=== PATIENT | female | born 1995 | race Caucasian/White ===

== ENCOUNTER → 2023-06-20 13:14 | Outpatient (CLI) | payer OTHER, SELFPAY ==
[2023-06-20 13:41] LABS: Add Manual Diff / Slide Review NO; Basophils Absolute Auto 0 /uL (0-100); Basophils Percent Auto 0.3 % (0-2); Eosinophils Absolute Auto 100 /uL (0-450); Eosinophils Percent Auto 1.5 % (2-4); Hematocrit 36.6 % (36-46); Hemoglobin 12.6 g/dL (12.0-16.0); Lymphocytes Absolute Auto 1800 /uL (1100-4500); Lymphocytes Percent Auto 20.3 % (25-40); Mean Corpuscular HGB Conc 34.5 % (30-36); Mean Corpuscular Hemoglobin 30.8 PG (26-34); Mean Corpuscular Volume 89.3 fL (80-100); Monocytes Absolute Auto 400 /uL (0-900); Monocytes Percent Auto 4.9 % (3-14); Neutrophils Absolute Auto 6500 /uL (1500-7000); Platelet Count 291 X10^3/uL (150-400); Red Cell Distribution Width 13.7 % (11.6-14.8); White Blood Cell Count 8.9 X10^3/uL (4.5-11.0)
[2023-06-20 15:21] LABS: Hepatitis B Surface Antigen NEGATIVE s/c (NEGATIVE); Rubella Antibody IgG 15.9 IU/mL (>15)
[2023-06-20 15:39] LABS: HIV 1 & 2 Ab/Ag 4th Gen Combo NEGATIVE (NEGATIVE); Hep C Virus Ab w/Reflex Quant NEGATIVE s/c (NEGATIVE)
[2023-06-21 10:02] LABS: RPR Screen Non Reactive (Non Reactive); Varicella IgG Antibody 477 index (Immune >165)
== END ==
PROVIDERS: PCP Nurse Practitioner Family; Referring Provider Obstetrics & Gynecology; Visit Provider Obstetrics & Gynecology
DX: Z34.80 Encounter for supervision of other normal pregnancy, unspecified trimester (principal)
CPT/HCPCS: 36415; 80055; 86787; 86803; 86850; 86900; 86901; 87086; 87389

== ENCOUNTER → 2023-07-18 07:24 | Outpatient (CLI) | payer OTHER, SELFPAY ==
--- NOTE | 2023-07-18 07:25 | DI.US.S_ITS ---
PROCEDURE: US OB LIMITED INDICATIONS: TWINS VERSUS UTERINE SEPTATION OUTSIDE/PRIOR DATING DATA: Last menstrual period (LMP): 04/09/2023. First dating scan (date and location): 06/10/2023. Estimated date of delivery (MALISSA) from first dating scan: 01/13/2024. The calculations are made using the working MALISSA of 01/13/2024. TECHNIQUE: Real-time scanning was performed of the fetus, with image documentation. Endovaginal scannin COMPARISON: None. FINDINGS: A single living intrauterine gestation is present. Presentation: Variable. Placenta: Placental position is fundal, without previa. Amniotic fluid index: Within normal limits heart rate: 149 beats per minute. Maternal cervical canal: 4.3 cm long. Normal lower limit is 2.5 cm. Clinically estimated gestational age: 14 week 3 day Estimated gestational age from initial scan: 15 week 1 day Additionally, there is an adjacent empty gestational sac with placenta and twin peak sign. No yolk sac or pole present. Gestational sac measures 2.3 x 1.8 x 2.3 cm IMPRESSION: Single live intrauterine consistent with 15 week 1 day gestation by current ultrasound. Additional empty gestational sac probably reflects the sequela of an original diamniotic dichorionic and demise of 1 twin Approved by: Juan Jose Mcgee M.D. on 07/18/2023 at 12:05
== END ==
PROVIDERS: PCP Nurse Practitioner Family; Referring Provider Obstetrics & Gynecology; Visit Provider Obstetrics & Gynecology
DX: Z34.82 Encounter for supervision of other normal pregnancy, second trimester (principal); Z3A.15 15 weeks gestation of pregnancy
CPT/HCPCS: 76815

== ENCOUNTER 2023-07-25 13:51 | Outpatient (CLI) | payer OTHER, SELFPAY ==
[2023-07-25] MEDS: LACTATED RINGERS 1,000 ML 1000 ML IV ×2 (14:05→15:14)
--- NOTE | 2023-07-25 14:27 | PC.NURSE ---
pt here fro fluids r/t dehydration of . Pt presents well, A&Ox4.
[2023-07-25 15:47] VITALS: BP 94/55; PULSE 88; RESP 16; TEMP 36.5
== END 2023-07-25 16:32 | disposition home or self-care (01) ==
LOC: LABOR 14:39 → OB 09-07 15:23
PROVIDERS: PCP Nurse Practitioner Family; Referring Provider Obstetrics & Gynecology; Visit Provider Obstetrics & Gynecology
DX: O26.892 Other specified pregnancy related conditions, second trimester (principal); W19.XXXA Unspecified fall, initial encounter
CPT/HCPCS: 96360; G0378; G0379

== ENCOUNTER → 2023-08-10 09:23 | Outpatient (CLI) | payer OTHER, SELFPAY ==
[2023-08-10 15:08] LABS: Urine N gonorrhoeae NOT DETECTED
[2023-08-10 15:09] LABS: Urine Chlamydia NOT DETECTED
== END ==
PROVIDERS: PCP Nurse Practitioner Family; Visit Provider Obstetrics & Gynecology
DX: Z34.82 Encounter for supervision of other normal pregnancy, second trimester (principal); Z3A.17 17 weeks gestation of pregnancy
CPT/HCPCS: 87491; 87591

== ENCOUNTER → 2023-09-01 12:27 | Outpatient (CLI) | payer OTHER, SELFPAY ==
[2023-09-06 22:19] LABS: AFP, Serum 63.4 ng/mL (.); Estriol, Free 1.83 ng/mL (.); Inhibin A, Dimeric 422.87 pg/mL (.); Inhibin A, MoM 2.25 (.); Maternal Ethnicity Caucasian (.); Maternal Weight 160 lbs (.); Number of Fetuses No (.); OSBR Risk 1 IN 10000 (.); Results Report (.); Test Results *Screen Positive* (.); hCG, MoM 3.13 (.); hCG, Serum 74180 mIU/mL (.)
== END ==
PROVIDERS: PCP Family Medicine; Referring Provider Obstetrics & Gynecology; Visit Provider Obstetrics & Gynecology
DX: Z34.82 Encounter for supervision of other normal pregnancy, second trimester (principal); Z3A.17 17 weeks gestation of pregnancy
CPT/HCPCS: 36415; 82105; 82677; 84702; 86336

== ENCOUNTER → 2023-09-08 08:38 | Outpatient (CLI) | payer OTHER, SELFPAY ==
--- NOTE | 2023-09-08 08:39 | DI.US.S_ITS ---
PROCEDURE: US OB >= 14 WEEKS FETUS INDICATIONS: ANATOMY OUTSIDE/PRIOR DATING DATA: Last menstrual period (LMP): 04/09/2023. LMP-based estimated date of delivery (MALISSA): 01/14/2024. First dating scan (date and location): 06/10/2023. Estimated date of delivery (MALISSA) from first dating scan: 01/13/2024. The calculations are made using the clinical MALISSA of 01/14/2024. TECHNIQUE: Real-time scanning was performed of the fetus, with image documentation and biometric measurements. Endovaginal scanning: Not performed COMPARISON: [facility], , OB >= 14 WEEKS FETUS, 08/10/2023, 8:56. [facility], , OB LIMITED, 07/18/2023, 7:46. FINDINGS: General: A single living intrauterine gestation is present. Presentation: Breech. Placenta: Placental position is posterior/right , without previa. Amniotic fluid index: 19.3 cm, normal range is 5-24 cm. Single deepest vertical pocket is 6.1 cm. heart rate: 152 beats per minute. Maternal cervical canal: 4.6 cm long. Normal lower limit is 2.5 cm. biometrics: Biparietal diameter: 5.5 centimeters, 22 weeks 6 days Head circumference: 19.8 centimeters, 22 weeks 0 days Abdominal circumference: 18.4 centimeters, 23 weeks 2 days Femur length: 3.6 centimeters, 21 weeks 3 days Clinically estimated gestational age: 21 weeks 5 days Composite gestational age from present scan: 22 weeks 3 days Estimated weight and percentile: 504 grams, 81st percentile Anatomic survey: Neuro: Ventricles are non-dilated at less than 10 mm. Cisterna magna is normal at 3-11 mm. Cerebellum is normal in size and morphology. Nuchal skin fold: Normal at less than 6 mm between 14-21 weeks gestational age. Face: Nose and lips, facial profile are normal. Spine: No evidence for spina bifida. Heart: 4-chambered heart is present, with normal ventricular outflow tracts. Diaphragm: Diaphragm is intact. Stomach: Left-sided stomach is present. Kidneys: No hydronephrosis. Normal is less than 5 mm in 2nd trimester, less than 7 mm in 3rd trimester. Cord: 3-vessel cord has orthotopic insertion. Bladder: Normal in size. Extremities: All 4 extremities identified. Possible right lower synechiae with cystic areas. IMPRESSION: 1. Single live intrauterine consistent with 22 weeks and 3 days. 2. anatomic survey is within normal limits. 3. Possible right lower intrauterine synechiae with small cystic areas of unclear clinical significance. Follow-up ultrasound can be obtained as clinically indicated. We strive to produce accurate, complete, and clear reports of imaging services. To assist us in improving patient care, this report was composed using standard report templates and voice recognition software. Therefore, it may contain abnormal punctuation, insertions and/or omissions. Occasional wrong-word or sound-alike substitutions may occur. Though we review the report and make efforts to correct it, we do recommend that the report be read carefully in proper context to recognize any text inaccuracies. Dictated by: Luigi Gimenez M.D. on 09/08/2023 at 11:41 Approved by: Luigi Gimenez M.D. on 09/08/2023 at 11:47
== END ==
LOC: US 08:39
PROVIDERS: PCP Family Medicine; Referring Provider Obstetrics & Gynecology; Visit Provider Obstetrics & Gynecology
DX: Z34.82 Encounter for supervision of other normal pregnancy, second trimester (principal); Z3A.22 22 weeks gestation of pregnancy
CPT/HCPCS: 76811

== ENCOUNTER 2023-10-15 18:51 | Outpatient (CLI) | payer OTHER, SELFPAY ==
--- NOTE | 2023-10-15 19:10 | DI.US.S_ITS ---
PROCEDURE: US OB LIMITED INDICATIONS: looking for placental abruption OUTSIDE/PRIOR DATING DATA: Last menstrual period (LMP): 04/09/23 LMP-based estimated date of delivery (MALISSA): 01/14/24. First dating scan (date and location): 06/10/23. Estimated date of delivery (MALISSA) from first dating scan: 01/13/24. TECHNIQUE: Real-time scanning was performed of the fetus, with image documentation. Endovaginal scanning: Not needed [facility]23, 7:46. FINDINGS: A single living intrauterine gestation is present. Presentation: Vertex. Placenta: Placental position is right posterior, without previa. There is no sign of placental abruption. Amniotic fluid index: 10.4 cm, normal range is 5-24 cm. Single deepest vertical pocket is 3.1 cm. heart rate: 152 beats per minute. Maternal cervical canal: 3.6 cm long. Normal lower limit is 2.5 cm. Estimated gestational age from initial scan: 27 weeks 0 days. IMPRESSION: Single living intrauterine gestation, no evidence of placental abruption. Dictated by: Tate Espinoza M.D. on 10/15/2023 at 20:21 Approved by: Tate Espinoza M.D. on 10/15/2023 at 20:23
--- NOTE | 2023-10-15 20:07 | PM.CN ---
History of Present Illness Consult details Date Patient Seen: 10/15/23 Time Patient Seen: 20:12 Chief complaint: fall, pablo shot Narrative: Identification: Patient is a 27-year-old female at 26 weeks and 5/7. She is also noted to be O negative. History of present illness patient I was walking and she tripped over her child and at 3:30 p.m. fell on her left knee left arm. She denies striking her abdomen. She is noted motion since then. She denies bleeding or contraction. She is noted to have a vanishing twin. She had suggestion of Down syndromes on her chromosomal studies. However her ultrasound did not show the remaining fetus with any kind of stigmata of Down syndrome. This has been uncomplicated with some morning sickness in which she has been taking Zofran as well as promethazine. Upon reviewing her chart she was noted to be O negative she denies having any RhoGAM early in this . Meds Home Medications and Allergies Home Medications Medication Instructions Recorded Confirmed Type Lactobacillus acidophilus and cap PO 05/17/23 09/08/23 History rhamnosus 15 billion cell capsule (Probiotic) folic acid 400 mcg tablet 0.4 mg PO DAILY 05/17/23 09/08/23 History melatonin 3 mg tablet 3 mg PO BEDTIME PRN 05/17/23 09/08/23 History omega 5-fho-rea-fish oil 1,200 mg cap PO 05/17/23 09/08/23 History (144 mg-216 mg) capsule (Fish Oil) vitamin-ferrous sulfate tab PO 05/17/23 09/08/23 History 27 mg iron-folic acid 0.8 mg tablet cyclobenzaprine 5 mg tablet 5 mg PO BEDTIME PRN muscle spasm 07/15/23 09/08/23 Rx #20 tabs promethazine 25 mg tablet 25 mg PO TID PRN nausea #20 tabs 09/19/23 Rx ondansetron 4 mg disintegrating 4 mg PO Q6H PRN for 09/28/23 Rx tablet nausea/vomiting #90 tabs sertraline 50 mg tablet 100 mg (2 x 50 mg) PO DAILY #60 10/09/23 10/09/23 Rx tabs Allergies Allergy/AdvReac Type Severity Reaction Status Date / Time oysters Allergy Severe Difficulty Uncoded 09/08/23 10:11 Breathing Exam Const General: cooperative, healthy appearing and comfortable Nutritional Appearance: average body habitus and well nourished Orientation: alert, awake and oriented x3 Limitations: altered mental status HENMT Head: normal to inspection Nose: external nose normal Face and sinus: normal facial exam Mouth: oral mucosae normal, lip normal and tongue normal Teeth and gingiva: dentition normal Eyes Sclera: sclerae normal Pupils: PERRL Resp Effort & Inspection: normal respiratory effort and able to speak in complete sentences Cardio Rate: regular rate Rhythm: regular rhythm Heart Sounds: S1 normal and S2 normal Other: Ultrasound did not show any signs of abruption the placenta was located on the right-hand side and posterior PFSH Medical History (Updated 10/15/23 @ 20:18 by Camden Prado MD) Acne Anxiety Surgical History (Updated 06/18/23 @ 21:27 by Radha Mccabe) Anesthesia [place] teeth extracted Family History (Updated 05/17/23 @ 13:48 by Barb Vazquez RN) Mother Skin cancer Endometriosis Grandmother Breast cancer Grandmother Cancer Grandfather Cancer Grandfather Heart disease Sister Endometriosis Father Polio Social History marital status: number of children: 1 household members: spouse lives independently: Yes caregiver/support person: Yes housing: house pets and animals: Yes (outdoor cats) education level: vocational 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.) current occupational exposures/hazards: No sofiya/sabianist: Restorationism special sofiya needs: No travel history: over 6 months ago Safety seatbelt use: always helmet use: Yes water heater temp set < 120 deg: Yes working smoke detector in home: Yes fire extinguisher in home: Yes carbon monox detector in home: Yes firearms in home: No (stored outside the home) do you feel safe at home: Yes Tobacco & Substance Use Smoking Status: Never smoker second hand exposure: No alcohol intake: former (occasionally when not ) substance use type: does not use Diet and Exercise during the past year weight has: remained stable well-balanced diet: daily or most days daily servings fruits/ve or more times/day caffeine: Yes (estimates 120-160mg) Type(s) of exercise: walking Assessment & Plan Assessment and plan (1) Fall: Status: Acute Plan Patient was cautioned regarding motion bleeding and contractions. Because she is O negative we will schedule patient for RhoGAM. Because the pharmacy is not available [facility] patient will be coming in tomorrow obtain an NST and receive RhoGAM.
== END 2023-10-15 20:10 | disposition home or self-care (01) ==
LOC: OB 10-18 15:06
PROVIDERS: PCP Family Medicine; Referring Provider Obstetrics & Gynecology; Visit Provider Obstetrics & Gynecology
DX: O26.892 Other specified pregnancy related conditions, second trimester (principal); W01.0XXA Fall on same level from slipping, tripping and stumbling without subsequent striking against object, initial encounter; Z3A.26 26 weeks gestation of pregnancy
CPT/HCPCS: 59025; 76815; G0378; G0379

== ENCOUNTER 2023-10-16 18:54 | Outpatient (CLI) | payer OTHER, SELFPAY ==
[2023-10-16] MEDS: RHO(D) IMMUNE GLOBULIN 1,500 UNIT SYRINGE 1500 UNIT IM (19:18)
== END 2023-10-16 19:30 | disposition home or self-care (01) ==
LOC: LABOR 18:58 → OB 10-18 15:04
PROVIDERS: PCP Family Medicine; Referring Provider Obstetrics & Gynecology; Visit Provider Obstetrics & Gynecology
DX: O26.892 Other specified pregnancy related conditions, second trimester (principal); Z67.41 Type O blood, Rh negative; Z3A.27 27 weeks gestation of pregnancy
CPT/HCPCS: 96372; G0378; G0379; J2790

== ENCOUNTER → 2023-10-21 14:17 | Outpatient (CLI) | payer OTHER, SELFPAY ==
[2023-10-21 16:50] LABS: Hematocrit 29.1 % (36-46)
[2023-10-21 17:12] LABS: GTT (PREG) 1 Hour PP 50gm Dose 97 mg/dL (76-139)
== END ==
PROVIDERS: PCP Family Medicine; Referring Provider Obstetrics & Gynecology; Visit Provider Obstetrics & Gynecology
DX: Z34.82 Encounter for supervision of other normal pregnancy, second trimester (principal); Z3A.26 26 weeks gestation of pregnancy
CPT/HCPCS: 36415; 82950; 85014; 85018; 86850; 86870

== ENCOUNTER 2023-11-01 11:56 | Observation (INO) | payer OTHER, SELFPAY ==
[2023-11-01] MEDS: LACTATED RINGERS 1,000 ML 1000 ML IV ×2 (13:05→13:43)
--- NOTE | 2023-11-01 13:29 | PM.OBTRLD ---
Visit Information Visit Information Date of evaluation: 11/01/23 On-call OB Provider: Gretchen Deng Reason for Evaluation: Yes non-stress test [facility] Medical History (Updated 11/01/23 @ 14:35 by Gretchen Deng DO) Acne Anxiety Surgical History (Updated 06/18/23 @ 21:27 by Radha Mccabe) Anesthesia [place] teeth extracted Family History (Updated 05/17/23 @ 13:48 by Barb Vazquez RN) Mother Skin cancer Endometriosis Grandmother Breast cancer Grandmother Cancer Grandfather Cancer Grandfather Heart disease Sister Endometriosis Father Polio Social History marital status: number of children: 1 household members: spouse lives independently: Yes caregiver/support person: Yes housing: house pets and animals: Yes (outdoor cats) education level: vocational 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.) current occupational exposures/hazards: No sofiya/anabaptist: Nondenominational special sofiya needs: No travel history: over 6 months ago seatbelt use: always helmet use: Yes water heater temp set < 120 deg: Yes working smoke detector in home: Yes fire extinguisher in home: Yes carbon monox detector in home: Yes firearms in home: No (stored outside the home) do you feel safe at home: Yes Smoking Status: Never smoker second hand exposure: No alcohol intake: former (occasionally when not ) substance use type: does not use during the past year weight has: remained stable well-balanced diet: daily or most days daily servings fruits/ve or more times/day caffeine: Yes (estimates 120-160mg) Type(s) of exercise: walking Review of Systems Review of Systems ROS: Yes All systems reviewed with the patient and are negative except as otherwise documented Exam Vital Signs (past 8 hours): BP 124/87, P 103 Evaluation Evaluation Baseline heart rate: 140 Variability: Moderate (11-25) monitor accelerations: Present (10x10) Monitor Decelerations: Absent Category of Tracing: Appropriate for gestational age Diagnosis, Plan/Disposition Final Diagnosis (1) Nausea/vomiting in : Status: Acute Plan/Disposition Plan: Given 2L IV fluid, discharged home with routine precautions. OB Disposition: home
== END 2023-11-01 14:28 | disposition home or self-care (01) ==
PROVIDERS: Admitting Provider Obstetrics & Gynecology; PCP Family Medicine; Referring Provider Obstetrics & Gynecology; Visit Provider Obstetrics & Gynecology
DX: O21.9 Vomiting of pregnancy, unspecified (principal); Z3A.29 29 weeks gestation of pregnancy
CPT/HCPCS: 59025; 96360; G0378; G0379

== ENCOUNTER 2023-11-16 09:54 | Outpatient (CLI) | payer OTHER, SELFPAY ==
--- NOTE | 2023-11-16 10:25 | P.TNLD_ITS ---
Visit Information Visit Information Date of evaluation: 11/16/23 Primary OB Provider: Karina Rossi On-call OB Provider: Alyssa Mcdonough Reason for Evaluation: Yes non-stress test non-stress test reason: other (Early grade 2 placenta changes) [facility] Medical History (Updated 11/08/23 @ 15:01 by Marlon Bradley MD) Acne Anxiety Surgical History (Updated 06/18/23 @ 21:27 by Radha Mccabe) Anesthesia [place] teeth extracted Family History (Updated 05/17/23 @ 13:48 by Barb Vazquez RN) Mother Skin cancer Endometriosis Grandmother Breast cancer Grandmother Cancer Grandfather Cancer Grandfather Heart disease Sister Endometriosis Father Polio Social History marital status: number of children: 1 household members: spouse lives independently: Yes caregiver/support person: Yes housing: house pets and animals: Yes (outdoor cats) education level: vocational 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.) current occupational exposures/hazards: No sofiya/jain: Sabianist special sofiya needs: No travel history: over 6 months ago seatbelt use: always helmet use: Yes water heater temp set < 120 deg: Yes working smoke detector in home: Yes fire extinguisher in home: Yes carbon monox detector in home: Yes firearms in home: No (stored outside the home) do you feel safe at home: Yes Smoking Status: Never smoker second hand exposure: No alcohol intake: former (occasionally when not ) substance use type: does not use during the past year weight has: remained stable well-balanced diet: daily or most days daily servings fruits/ve or more times/day caffeine: Yes (estimates 120-160mg) Type(s) of exercise: walking Evaluation Evaluation Baseline heart rate: 130 Variability: Moderate (11-25) monitor accelerations: Present Monitor Decelerations: Absent Contraction Frequency (minutes): 0 Category of Tracing: Reactive Status: Category l Diagnosis, Plan/Disposition Final Diagnosis (1) Placental abnormality: Status: Acute Plan/Disposition Plan: 31 week gestation with early placental calcifications with reactive nonstress test. SO, good movement, tone, breathing on ultrasound in the office today. Follow-up in 2 weeks. OB Disposition: home
== END 2023-11-16 10:30 | disposition home or self-care (01) ==
LOC: LABOR 10:41 → OB 11-21 10:35
PROVIDERS: PCP Family Medicine; Referring Provider Obstetrics & Gynecology; Visit Provider Obstetrics & Gynecology
DX: O43.893 Other placental disorders, third trimester (principal); Z3A.31 31 weeks gestation of pregnancy; O43.103 Malformation of placenta, unspecified, third trimester; Z36.9 Encounter for antenatal screening, unspecified
CPT/HCPCS: 59025; G0378; G0379

== ENCOUNTER 2023-11-30 12:00 | Outpatient (CLI) | payer OTHER, SELFPAY ==
--- NOTE | 2023-11-30 12:30 | P.TNLD_ITS ---
Visit Information Visit Information Date of evaluation: 11/30/23 Primary OB Provider: Alyssa Mcdonough Reason for Evaluation: Yes non-stress test non-stress test reason: other (Early placental aging) [facility] Medical History (Updated 11/30/23 @ 12:31 by Alyssa Mcdonough MD) Acne Anxiety Surgical History (Updated 06/18/23 @ 21:27 by Radha Mccabe) Anesthesia [place] teeth extracted Family History (Updated 05/17/23 @ 13:48 by Barb Vazquez RN) Mother Skin cancer Endometriosis Grandmother Breast cancer Grandmother Cancer Grandfather Cancer Grandfather Heart disease Sister Endometriosis Father Polio Social History marital status: number of children: 1 household members: spouse lives independently: Yes caregiver/support person: Yes housing: house pets and animals: Yes (outdoor cats) education level: vocational 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.) current occupational exposures/hazards: No sofiya/restorationism: Confucianism special sofiya needs: No travel history: over 6 months ago seatbelt use: always helmet use: Yes water heater temp set < 120 deg: Yes working smoke detector in home: Yes fire extinguisher in home: Yes carbon monox detector in home: Yes firearms in home: No (stored outside the home) do you feel safe at home: Yes Smoking Status: Never smoker second hand exposure: No alcohol intake: former (occasionally when not ) substance use type: does not use during the past year weight has: remained stable well-balanced diet: daily or most days daily servings fruits/ve or more times/day caffeine: Yes (estimates 120-160mg) Type(s) of exercise: walking Evaluation Evaluation Baseline heart rate: 140 Variability: Moderate (11-25) monitor accelerations: Present Monitor Decelerations: Absent Contraction Frequency (minutes): 0 Diagnosis, Plan/Disposition Final Diagnosis (1) Placental abnormality: Status: Acute (2) 33 weeks gestation of : Status: Acute Plan/Disposition Plan: Reactive nonstress test. Continue follow-up in 2 weeks OB Disposition: home
== END 2023-11-30 12:30 | disposition home or self-care (01) ==
LOC: LABOR 12:11 → OB 12-01 08:53
PROVIDERS: PCP Family Medicine; Referring Provider Obstetrics & Gynecology; Visit Provider Obstetrics & Gynecology
DX: O43.893 Other placental disorders, third trimester (principal); Z3A.33 33 weeks gestation of pregnancy
CPT/HCPCS: 59025; G0378; G0379

== ENCOUNTER 2023-12-05 11:03 | Observation (INO) | payer OTHER, SELFPAY | END 2023-12-05 12:00 | disposition home or self-care (01) | PROVIDERS: Admitting Provider Obstetrics & Gynecology; PCP Family Medicine; Referring Provider Obstetrics & Gynecology; Visit Provider Obstetrics & Gynecology | DX: O99.013 Anemia complicating pregnancy, third trimester (principal); O43.893 Other placental disorders, third trimester; D64.9 Anemia, unspecified; Z3A.34 34 weeks gestation of pregnancy | CPT/HCPCS: 59025; 76815; G0378; G0379 ==

== ENCOUNTER 2023-12-07 22:34 | Inpatient (IN) | payer OTHER, SELFPAY ==
--- NOTE | 2023-12-07 22:55 | DI.US.S_ITS ---
PROCEDURE: US OB BIOPHYSICAL PROFILE INDICATIONS: vaginal bleeding during OUTSIDE/PRIOR DATING DATA: Last menstrual period (LMP): 04/09/2023. LMP-based estimated date of delivery (MALISSA): 01/14/2024. First dating scan (date and location): 06/10/2023. Estimated date of delivery (MALISSA) from first dating scan: 01/13/2024. The calculations are made using the clinical MALISSA of 01/14/2024. TECHNIQUE: Real-time scanning was performed of the fetus, with image documentation and biometric measurements. Biophysical profile was also obtained. [facility], , OB >= 14 WEEKS FETUS, 11/16/2023, 9:56. FINDINGS: General: A single living intrauterine gestation is present. Presentation: Vertex. Placenta: Placental position is posterior , without previa. Amniotic fluid index: 14 cm, normal range is 5-24 cm. Single deepest vertical pocket is 5.2 cm. heart rate: 131 beats per minute. Maternal cervical canal: Not assessed biometrics: Clinically estimated gestational age: 34 weeks 4 days Biophysical profile: Tone: 2 points. Movement: 2 points. Respiration: 0 points. Largest pocket of fluid: 2 points. IMPRESSION: Single live intrauterine with gestational age 34 weeks 4 days. BPP /. Placenta is unremarkable. We strive to produce accurate, complete, and clear reports of imaging services. To assist us in improving patient care, this report was composed using standard report templates and voice recognition software. Therefore, it may contain abnormal punctuation, insertions and/or omissions. Occasional wrong-word or sound-alike substitutions may occur. Though we review the report and make efforts to correct it, we do recommend that the report be read carefully in proper context to recognize any text inaccuracies. Dictated by: Elisabeth Medeiros M.D. on 12/07/2023 at 23:54 Approved by: Elisabeth Medeiros M.D. on 12/07/2023 at 23:56
[2023-12-07 23:31] LABS: Add Manual Diff / Slide Review NO; Basophils Absolute Auto 0 /uL (0-100); Basophils Percent Auto 0.3 % (0-2); Eosinophils Absolute Auto 200 /uL (0-450); Hematocrit 35.4 % (36-46); Hemoglobin 12.2 g/dL (12.0-16.0); Lymphocytes Absolute Auto 2200 /uL (1100-4500); Lymphocytes Percent Auto 22.9 % (25-40); Mean Corpuscular HGB Conc 34.4 % (30-36); Mean Corpuscular Hemoglobin 30.4 PG (26-34); Mean Corpuscular Volume 88.5 fL (80-100); Monocytes Absolute Auto 600 /uL (0-900); Monocytes Percent Auto 6.3 % (3-14); Neutrophils Absolute Auto 6600 /uL (1500-7000); Neutrophils Percent Auto 68.5 % (50-75); Platelet Count 192 X10^3/uL (150-400); Red Cell Distribution Width 17.1 % (11.6-14.8); White Blood Cell Count 9.6 X10^3/uL (4.5-11.0)
[2023-12-07 23:34] LABS: INR 0.9 (0.9-1.3); Prothrombin Time 10.8 SECONDS (9.4-12.5)
[2023-12-07 23:36] LABS: PTT Partial Thromboplastin Tim 30 SECONDS (25.1-36.5)
[2023-12-07] MEDS: BETAMETHASONE 30 MG/5 ML MDV 12 MG IM (23:45)
[2023-12-07 23:49] LABS: Fibrinogen 400 mg/dL (238-498)
--- NOTE | 2023-12-07 23:58 | PM.OBHP.1 ---
OB HPI Date/Time Date of admission: 12/07/23 Date Patient Seen: 12/07/23 Time Patient Seen: 23:20 History of Present Condition Chief complaint: IUP, 34+4 wks, third trimester bleeding, Rh Neg : 3 Para: 1 Estimated Date of Delivery: 01/14/24 Estimated Gestational Age (weeks): 34+4 Narrative: Guerita Penaloza is a 27 year old admitted at 34+ 4 weeks with significant bright red bleeding per vagina which began earlier this evening followed by the onset of frequent contractions and uterine pain. Patient's course has been notable for amniotic band and abnormal quad screen testing. Quad screen testing suggested an elevated risk for Down syndrome but patient declined cell free DNA studies or any other further evaluation. In addition the patient was recently noted to have accelerated maturation of the placenta and has a grade 2-3 placenta on recent study with normal SO. Ultrasound on the center this evening does not clearly show placental abruption or retroplacental lucency but the clinical picture with a tender uterus, significant bright red bleeding per vagina, and an abnormal appearing placenta raise significant concerns for the presence of a subclinical abruptio placenta. Patient is Rh negative and her antibody screen is positive, presumably from 20/8 week RhoGAM. Indications Operative indications ( section): abruptio placenta History of Present care: good care Dating criteria: LMP confirmed by 1st trimester US Ultrasounds: abnormal US findings (Amniotic band, accelerated placental maturity) Obstetrical complications: none Medical complications: none Preadmission Labs Blood type: 0 (-) negative -: Antibody screen: negative, GBS status: unknown, HBsAG: negative, HIV: negative and RPR/VDLR: negative -: Chlamydia screen: not detected and Gonorrhea screen: not detected -: Rubella: immune and Varicella: immune HCT: 35.4 HCAB: negative PAP: Normal Quad screen: Abnormal (Elevated trisomy 21 risk) Cell-free DNA: Declined 1 hr GTT: 97 Prior (ies) History: x1 Evaluation Evaluation Baseline heart rate: 135 Variability: Moderate (11-25) monitor accelerations: Present Monitor Decelerations: Absent Contraction Frequency (minutes): 2 Uterine Contraction Intensity: Moderate Category of Tracing: Reactive Status: Category l PFSH Medical History (Updated 11/30/23 @ 12:31 by Alyssa Mcdonough MD) Acne Anxiety Surgical History (Updated 06/18/23 @ 21:27 by Radha Mccabe) Anesthesia [place] teeth extracted Family History (Updated 05/17/23 @ 13:48 by Barb Vazquez RN) Mother Skin cancer Endometriosis Grandmother Breast cancer Grandmother Cancer Grandfather Cancer Grandfather Heart disease Sister Endometriosis Father Polio Social History marital status: number of children: 1 household members: spouse lives independently: Yes caregiver/support person: Yes housing: house pets and animals: Yes (outdoor cats) education level: vocational 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.) current occupational exposures/hazards: No sofiya/buddhist: Congregational special sofiya needs: No travel history: over 6 months ago seatbelt use: always helmet use: Yes water heater temp set < 120 deg: Yes working smoke detector in home: Yes fire extinguisher in home: Yes carbon monox detector in home: Yes firearms in home: No (stored outside the home) do you feel safe at home: Yes Smoking Status: Never smoker second hand exposure: No alcohol intake: former (occasionally when not ) substance use type: does not use during the past year weight has: remained stable well-balanced diet: daily or most days daily servings fruits/ve or more times/day caffeine: Yes (estimates 120-160mg) Type(s) of exercise: walking Meds Home Medications and Allergies Home Medications Medication Instructions Recorded Confirmed Type Lactobacillus acidophilus and cap PO 05/17/23 11/30/23 History rhamnosus 15 billion cell capsule (Probiotic) folic acid 400 mcg tablet 0.4 mg PO DAILY 05/17/23 11/30/23 History melatonin 3 mg tablet 3 mg PO BEDTIME PRN 05/17/23 11/30/23 History omega 3-sco-kcq-fish oil 1,200 mg cap PO 05/17/23 11/30/23 History (144 mg-216 mg) capsule (Fish Oil) vitamin-ferrous sulfate tab PO 05/17/23 11/30/23 History 27 mg iron-folic acid 0.8 mg tablet promethazine 25 mg tablet 25 mg PO TID PRN nausea #20 tabs 09/19/23 11/30/23 Rx sertraline 50 mg tablet 100 mg (2 x 50 mg) PO DAILY #60 10/09/23 11/30/23 Rx tabs pantoprazole 40 mg tablet,delayed 40 mg PO DAILY #30 tabs 11/02/23 11/30/23 Rx release (Protonix) ondansetron 4 mg disintegrating 4 mg PO Q6H PRN for 11/07/23 11/30/23 Rx tablet nausea/vomiting #90 tabs Allergies Allergy/AdvReac Type Severity Reaction Status Date / Time oysters Allergy Severe Difficulty Uncoded 11/30/23 11:41 Breathing OB Exam Vital signs Blood Pressure: 139/94 Pulse Rate: 82 Temperature: 97.3 F HENWA Head: normal to inspection, normocephalic and atraumatic Eyes General: appearance normal, both eyes and all related structures Resp Effort & Inspection: normal respiratory effort and able to speak in complete sentences Auscultation: clear to auscultation bilaterally Cardio Rate: regular rate Rhythm: regular rhythm Heart Sounds: S1 normal, S2 normal and no murmurs Extremities Lower extremity: Yes normal to inspection GI Inspection: normal to inspection Palpation: Yes soft and Yes no hepatosplenomegaly Uterus Location (Fundal Height): 34 Presentation: vertex Estimated Weight (lbs): 4 Objective Labs 12/07/23 23:15 Labs: Laboratory Results - last 24 hr 12/07/23 23:15 WBC 9.6 RBC 4.00 Hgb 12.2 Hct 35.4 L MCV 88.5 MCH 30.4 MCHC 34.4 RDW 17.1 H Plt Count 192 Neut % (Auto) 68.5 Lymph % (Auto) 22.9 L [place] % (Auto) 6.3 Eos % (Auto) 2.0 Baso % (Auto) 0.3 Neut # (Auto) 6600 Lymph # (Auto) 2200 [place] # (Auto) 600 Eos # (Auto) 200 Baso # (Auto) 0 PT 10.8 INR 0.9 APTT 30 Fibrinogen 400 Assessment and Plan Assessment and Plan Assessment and Plan narrative: ASSESSMENT 1. Intrauterine , 34+4 weeks gestational age 2. Third trimester bleeding; clinical picture consistent with abruptio placenta 3. Abnormal quad screen testing with elevated risk of trisomy 21 4. Rh-negative status 5. Post mature placenta 6. Request for sterilization PLAN 1. Admit for primary section <del>with</del> <del>bilateral</del> <del>salpingectomy</del> <del>per</del> <del>patient</del> <del>request</del> 2. Patient counseled regarding alternatives to permanent sterilization as well as the fact that this is a procedure which will result in her permanently and irreversibly being unable to bear children without benefit of assisted reproductive technology. In addition she understands that there carries with this procedure a small risk of failing to prevent and should occur, it would most likely be an ectopic gestation. Unfortunately due to patient's current insurance coverage, execution of HHS form 687 is required at least 72 hours prior to performance of sterilization procedure therefore can not be performed at the time of this surgery. Patient is aware. Time Spent with Patient Total time spent with greater than 50% in coordination of care (as documented) at patient's floor/unit and/or counseling patient:: Greater than 35 minutes
[2023-12-08] MEDS: CITRIC ACID/SODIUM CITRATE 15 ML SOLUTION 30 ML PO (00:04)
--- NOTE | 2023-12-08 00:13 | SUR.OPER ---
Supine on Padded OR bed, head on pillow, safety belt at thigh, arms secured on padded arm boards at <90 degrees abduction. Bump under right buttock. Legs uncrossed with pillow under knees, gel pad to heels, tape over blanket to lower legs.
[2023-12-08 00:14] VITALS: BP 139/94; PULSE 82; TEMP 36.3
--- NOTE | 2023-12-08 00:23 | PM.PREOP ---
Pre-operative Note COVID-19 COVID-19 status: Not tested Interval Note History & Physical reviewed/Exam performed by Physician: Yes Changes to H&P: No
[2023-12-08] MEDS: CEFAZOLIN 2 GM/100 ML PREMIX 100 ML IV (00:33)
[2023-12-08] MEDS: ACETAMINOPHEN IV 1,000 MG/100 ML VIAL 400 MG IV (00:40)
[2023-12-08 01:55] VITALS: BP 101/68; PULSE 109; RESP 30; TEMP 36.4; O2SAT 100
[2023-12-08 01:59] VITALS: BP 117/68; PULSE 102; RESP 17; O2SAT 100
[2023-12-08 02:04] VITALS: BP 135/87; PULSE 91; RESP 20; TEMP 36.2; O2SAT 98
--- NOTE | 2023-12-08 02:04 | PM.OBCS.1 ---
Operative Date/Time/Diagnoses Date of procedure: 12/08/23 Time of procedure: 00:30 Pre-op diagnosis: Intrauterine gestation, 34+5 weeks gestational age 3rd trimester bleeding due to abruptio placenta Rh-negative status Post-op diagnosis: same Procedure & Clinicians Procedure: Primary section (low transverse cervical) Same procedure as scheduled: Yes Indications: Patient is a 27-year-old at 34+5 weeks gestational age undergoing emergent primary section for significant 3rd trimester bleeding, uterine pain, and clinical picture consistent with placental abruption. Surgeon: Nathan Lam On Site Manager: Martha Ambrose Reason for On Site Manager: On Site Manager required for the safe, effective, and timely completion of this surgery. Anesthesia Type: Spinal Operative Notes Findings: Viable female infant BW 2630 gms. (5 lbs. 12.8 oz.), Apgars 6/8, delivered from the vertex presentation. The placenta was nodular in consistency with marked calcification and the placenta itself was surrounded with clots consistent with acute abruptio placenta. Normal gravid anatomy. Closure Type: primary Specimen(s): cord blood Intraoperative meds administered: Ketorolac and Pitocin Applied: Catheter Estimated Blood Loss (mL): 1,600 Blood products transfused: none Procedure in detail: With her informed written consent, the patient was taken to the operating room and placed in the supine position for a primary section procedure, for the indication(s) above. The abdomen was prepped and draped in the usual manner for section and a pre-surgical timeout was taken per [facility] OR protocol. Once effective anesthesia was confirmed, a 15 cm transverse Pfannenstiel incision was made in the skin and taken down through the subcutaneous tissues to the deep fascia. The deep fascia was incised transversely, the rectus abdominal eyes bluntly and sharply, and the peritoneal cavity entered without difficulty. The lower uterine segment was visualized and the position/presentation palpated. A transverse incision at or above the vesicouterine reflection was made with Metzenbaum scissors and transverse hysterotomy performed near the midline. Amniotomy revealed clear fluid. The incision was extended bilaterally with digital traction and the was delivered without difficulty from the vertex presentation. The infant was vigorous and cord clamping delayed for 60 seconds. The placenta was delivered intact using gentle cord traction and fundal massage.The uterine cavity was then cleared of any clot/debris first with a sloppy wet lap tape followed by a dry lap tape. Ring forceps were then applied to the angles and the midline of the incised LOCO. A primary closure of the uterus was then accomplished with #1 CCGS in a running interlocking stitch followed by a 2nd layer of #1 CCGS in a running interlocking imbricating stitch. Two additional [id number] sutures were required to achieve complete hemostasis and an ascending uterine artery suture was required on the left side to insure angle hemostasis on the left side. Once pelvic hemostasis was assured, the bladder flap and anterior peritoneum were closed with a running 2-0 Vicryl suture and the fascia closed with #1 Vicryl in a running stitch initiated at both angles and tying separately near the midline. The subcutaneous tissues were reapproximated with 2-0 plain catgut suture using inverted interrupted stitches. The skin edges were then brought together with 4-0 Monocryl in a subcuticular closure and the incision was reinforced with 1 Steri-Strips. An appropriate compression dressing was applied and the patient transferred to PACU for recovery and subsequent transfer to the Center for recuperation. Complications: none [place] Baby 1: Infant Gender: Female Presentation: vertex Position: Left Occiput Anterior Placental Delivery Description: Manual Removal and Abnormal Configuration (Markedly calcified with surrounding clots and hemorrhage consistent with abruptio) Cord Vessel Description: 3 Vessels Post-operative Condition: stable Disposition: PACU Aftercare: routine postop
--- NOTE | 2023-12-08 02:09 | SUR.PHASEI ---
Report called to W[facility]o.
--- NOTE | 2023-12-08 02:20 | SUR.PHASEI ---
Patient transferred to the center. Bedside report given to Wicho. Fundus and dressing checked with RN. No active bleeding noted. Sam patent.
[2023-12-08] MEDS: KETOROLAC 30 MG/ML VIAL IV ×4 (02:45→21:07)
[2023-12-08] MEDS: diphenhydrAMINE 50 MG/ML VIAL 25 MG IV ×2 (04:50→21:23)
[2023-12-08 05:05] VITALS: BP 139/94
[2023-12-08] MEDS: BUTORPHANOL 1 MG/ML VIAL 0.5 MG IV (06:05)
[2023-12-08 06:33] LABS: Add Manual Diff / Slide Review NO; Basophils Absolute Auto 0 /uL (0-100); Basophils Percent Auto 0.1 % (0-2); Eosinophils Absolute Auto 0 /uL (0-450); Eosinophils Percent Auto 0.1 % (2-4); Hematocrit 26.9 % (36-46); Hemoglobin 9.2 g/dL (12.0-16.0); Lymphocytes Absolute Auto 1100 /uL (1100-4500); Lymphocytes Percent Auto 8.7 % (25-40); Mean Corpuscular HGB Conc 34.2 % (30-36); Mean Corpuscular Hemoglobin 30.2 PG (26-34); Mean Corpuscular Volume 88.4 fL (80-100); Monocytes Absolute Auto 200 /uL (0-900); Monocytes Percent Auto 1.5 % (3-14); Neutrophils Absolute Auto 11000 /uL (1500-7000); Neutrophils Percent Auto 89.6 % (50-75); Platelet Count 167 X10^3/uL (150-400); Red Blood Cell Count 3.04 X10^6/uL (4.0-5.2); Red Cell Distribution Width 16.6 % (11.6-14.8); White Blood Cell Count 12.2 X10^3/uL (4.5-11.0)
[2023-12-08 08:54] VITALS: TEMP 37.1
[2023-12-08] MEDS: DOCUSATE 100 MG CAPSULE PO ×2 (08:55→21:07)
[2023-12-08] MEDS: SERTRALINE 50 MG TABLET 100 MG PO (08:55)
[2023-12-08] MEDS: PANTOPRAZOLE DR 40 MG TABLET PO (08:55)
[2023-12-08] MEDS: ACETAMINOPHEN 325 MG TABLET 650 MG PO ×2 (11:53→17:47)
[2023-12-08] MEDS: ONDANSETRON 4 MG/2 ML INJ IV ×2 (12:51→21:13)
--- NOTE | 2023-12-08 14:37 | P.PNOB_ITS ---
Subjective - OB Subjective Patient comments: no complaints, pain well controlled, tolerating diet and flatus present baby status: NICU feeding status: exclusively breast feeding Date Patient Seen: 12/08/23 Time Patient Seen: 14:38 Interval history: Postop day # 0-1 status post section for placental abruption at 34 weeks' gestation. Baby in the NICU at [facility]. Is doing well on CPAP. Mom is pumping. Pain is well controlled. She is passing flatus. She has voided without the catheter. She has ambulated to the restroom. Exam Vital Signs (past 8 hours): - 12/08/23 08:54 Temperature 98.7 F Oxygen Delivery Method Room Air Narrative Exam Narrative: Generally: Patient is sitting up in bed, no acute distress Lungs: Clear to auscultation bilaterally Cardiovascular: Regular rate and rhythm Fundus: Firm at U -1 Incision: Clean dry and intact with dressing. Extremities: No edema, negative Homans Objective Labs 12/08/23 06:20 Labs: Laboratory Results - last 24 hr 12/07/23 12/08/23 23:15 06:20 WBC 9.6 12.2 H RBC 4.00 3.04 L Hgb 12.2 9.2 L Hct 35.4 L 26.9 L MCV 88.5 88.4 MCH 30.4 30.2 MCHC 34.4 34.2 RDW 17.1 H 16.6 H Plt Count 192 167 Neut % (Auto) 68.5 89.6 H D Lymph % (Auto) 22.9 L 8.7 L [place] % (Auto) 6.3 1.5 L Eos % (Auto) 2.0 0.1 L Baso % (Auto) 0.3 0.1 Neut # (Auto) 6600 19993 H Lymph # (Auto) 2200 1100 [place] # (Auto) 600 200 Eos # (Auto) 200 0 Baso # (Auto) 0 0 PT 10.8 INR 0.9 APTT 30 Fibrinogen 400 Blood Type O Negative Antibody Screen Positive Antibody Identification Anti-D Assessment & Plan Plan day: 1 Comments: Assessment: 27-year-old 3 para 0101 status post section at 34 weeks' gestation for placental abruption, doing very well Plan: Probable discharge in a.m. Ambulate in the halls this evening Time Spent With Patient Time: Total time spent is greater than 50% in coordination of care (as documented) at patient's floor/unit and/or counseling patient: Time with patient: 15-24 minutes
[2023-12-09] MEDS: ACETAMINOPHEN 325 MG TABLET 650 MG PO ×2 (02:26→08:52)
[2023-12-09] MEDS: IBUPROFEN 600 MG TABLET PO ×2 (02:26→08:52)
[2023-12-09] MEDS: SERTRALINE 50 MG TABLET 100 MG PO (08:50)
[2023-12-09] MEDS: PANTOPRAZOLE DR 40 MG TABLET PO (08:51)
[2023-12-09] MEDS: DOCUSATE 100 MG CAPSULE PO (08:51)
[2023-12-09] MEDS: OXYCODONE IR 5 MG TABLET PO (11:15)
[2023-12-09 11:53] VITALS: BP 127/84; PULSE 80; RESP 17; TEMP 37.3
--- NOTE | 2023-12-09 15:10 | PM.DS.1 ---
History of Present Illness History of Present Illness Date Patient Seen: 12/09/23 Time Patient Seen: 10:40 Chief complaint: IUP, 34+4 wks, third trimester bleeding, Rh Neg Narrative: Guerita Penaloza is a 27 year old admitted late on the evening of 12/07/2023 at 34+ 4 weeks with significant bright red bleeding per vagina which began earlier that evening followed by the onset of frequent contractions and uterine pain. Patient's course has been notable for amniotic band and abnormal quad screen testing. Quad screen testing suggested an elevated risk for Down syndrome but patient declined cell free DNA studies or any other further evaluation. In addition the patient was recently noted to have accelerated maturation of the placenta and has a grade 2-3 placenta on recent study with normal SO. Ultrasound on the center this evening does not clearly show placental abruption or retroplacental lucency but the clinical picture with a tender uterus, significant bright red bleeding per vagina, and an abnormal appearing placenta raise significant concerns for the presence of a subclinical abruptio placenta. Patient is Rh negative and her antibody screen is positive, presumably from 28 week RhoGAM. Discharge Providers Provider Date of admission: 12/07/23 22:34 Discharge Date: 12/09/23 Primary care physician: Marlon Bradley MD Consults: 12/08/23 02:21 Consult to Retail Security Professional Routine Comment: Discharge provider: Nathan Lam MD Summary Hospital Course Discharge Diagnosis: Intrauterine gestation, 34+5 weeks, delivered by emergent primary section Abruptio placenta Rh-negative status Anemia due to operative blood losses and hemorrhage Hospital Course: The patient presented on the evening of 12/07/2023 with the sudden onset of bright red blood per vagina followed by frequent and painful uterine contractions. Assessment on the center showed the to be stable on monitoring but her bleeding increased in intensity as did her uterine pain and contraction activity. In the face of likely placental abruption, the decision was made to proceed to emergent primary section for delivery as she was only 2-3 cm at that time and thus remote from delivery. Primary section early on the morning of 12/08/2023 confirmed the presence of a placental abruption and she delivered a viable male infant from the vertex presentation with a weight of 2630 g ( 5 lb 12.8 oz) and Apgars of 6/8. Blood gases were normal. The mother has done extremely well following delivery but the had to be transferred to the [facility] for NICU care. Following delivery the patient was found to be moderately anemic due to pre delivery hemorrhage and operative blood losses. She received 300 mg of intravenous iron sucrose but did not require transfusion and her hemoglobin/hematocrit were stable throughout the course of her hospitalization. She has experienced prompt return of bowel and bladder function, she is ambulating independently, tolerating regular diet, and her pain is well relieved with oral pain medication. She will be discharged at this time to home after counseling regarding precautionary symptoms, limitations of activity, medications, and plans for follow-up which will be in [address] Rossi. Medications at discharge will include resumption of all pre delivery medications as well as oxycodone 5 mg every 4-6 hours as needed for pain, dispensed 20 with no refills, and ibuprofen 600 mg p.o. q.6 hours as needed pain, dispense 30 with 2 refills. In addition the patient will take iron with vitamin-C daily for the next 30 days and increase the amount of iron rich foods in her diet. Status at Discharge Cognitive/behavioral status at discharge: oriented Functional status at discharge: independent ambulation Overall status at discharge: patient is progressing back to baseline Time Spent with Patient Time spent: Less than 30 minutes Exam Vital Signs (past 8 hours): - 12/09/23 11:53 Temperature 99.1 F Pulse Rate 80 Respiratory Rate 17 Blood Pressure 127/84 Oxygen Delivery Method Room Air Const General: cooperative and comfortable Nutritional Appearance: average body habitus Orientation: alert and oriented x3 HENMT Head: normal to inspection, atraumatic and abrasion Ears: hearing grossly normal bilaterally Face and sinus: face symmetric Eyes General: appearance normal, both eyes and all related structures Conjunctivae: conjunctivae normal Sclera: sclerae normal EOM: EOM intact bilaterally Neck Neck: normal visual inspection Resp Effort & Inspection: normal respiratory effort and able to speak in complete sentences Auscultation: clear to auscultation bilaterally Cardio Rate: regular rate Rhythm: regular rhythm Heart Sounds: S1 normal, S2 normal and no murmurs GI Inspection: normal to inspection and incision ( Compression dressing removed and Aquacel applied; incision dry/intact) Palpation: soft, no hepatosplenomegaly and tender (Mild, diffuse postsurgical tenderness) Auscultation: normal bowel sounds External Female Exam: other (No significant bleeding noted) Extrem General: no calf tenderness Psych Appearance: grossly normal Mental Status: mental status grossly normal Speech and Movement: speech and movement normal Mood: congruent mood Affect: normal affect Attitude: cooperative Thought Process: normal Thought Content: normal Judgment: judgment good Objective Labs 12/08/23 06:20 [facility] Medical History (Updated 11/30/23 @ 12:31 by Alyssa Mcdonough MD) Acne Anxiety Surgical History (Updated 06/18/23 @ 21:27 by Radha Mccabe) Anesthesia [place] teeth extracted Family History (Updated 05/17/23 @ 13:48 by Barb Vazquez RN) Mother Skin cancer Endometriosis Grandmother Breast cancer Grandmother Cancer Grandfather Cancer Grandfather Heart disease Sister Endometriosis Father Polio Social History marital status: number of children: 1 household members: spouse lives independently: Yes caregiver/support person: Yes housing: house pets and animals: Yes (outdoor cats) education level: vocational 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.) current occupational exposures/hazards: No sofiya/gnosticism: Zoroastrian special sofiya needs: No travel history: over 6 months ago seatbelt use: always helmet use: Yes water heater temp set < 120 deg: Yes working smoke detector in home: Yes fire extinguisher in home: Yes carbon monox detector in home: Yes firearms in home: No (stored outside the home) do you feel safe at home: Yes Smoking Status: Never smoker second hand exposure: No alcohol intake: former (occasionally when not ) substance use type: does not use during the past year weight has: remained stable well-balanced diet: daily or most days daily servings fruits/ve or more times/day caffeine: Yes (estimates 120-160mg) Type(s) of exercise: walking Discharge Assessment & Plan Assessment and Plan Assessment: Intrauterine gestation, 34+5 weeks, delivered by emergent primary section Abruptio placenta Rh-negative status Anemia due to operative blood losses and hemorrhage Plan of Treatment: Routine postoperative/ care Daily iron with vitamin-C times 30 days Follow-up will be in 1 week for incision check and dressing removal Discharge Plan Discharge Plan Patient Disposition: Home Provider Discharge Comment: Please review the written instructions you received when you were discharged from the hospital. Your follow-up appointment will be scheduled for 1 week after your delivery and we look forward to seeing you then. If however in the meanwhile you have any questions, concerns, or other issues, please contact our office either by phone at [phone], or via the patient portal. Discharge orders & Medications Prescriptions: New ibuprofen 600 mg Tablet 600 mg PO Q6H Qty: 30 2RF oxycodone 5 mg Tablet 5 mg PO Q4HR PRN (Reason: Pain, Moderate (4-6)) Qty: 20 0RF Continued promethazine 25 mg tablet 25 mg PO TID PRN (Reason: nausea) Qty: 20 2RF ondansetron 4 mg tablet,disintegrating 4 mg PO Q6H PRN (Reason: for nausea/vomiting) Qty: 90 0RF vit-ferrous sulfat-FA 27 mg iron- 0.8 mg tablet PO melatonin 3 mg tablet 3 mg PO BEDTIME PRN folic acid 400 mcg tablet 0.4 mg PO DAILY omega 1-jiu-ife-fish oil [Fish Oil] 1,200 (144-216) mg capsule PO Probiotic 15 billion cell capsule PO sertraline 50 mg tablet 100 mg PO DAILY Qty: 60 12RF pantoprazole [Protonix] 40 mg tablet,delayed release (DR/EC) 40 mg PO DAILY Qty: 30 3RF Follow up/Referrals: Marlon Bradley MD [Primary Care Provider] - Karina Rossi MD [Physician] - 1 Week (Please follow up with Dr. Rossi for a one week incision check on December 15 @ 4:00PM) Nathan Lam MD [Physician] - Discharge Health Status Multidrug resistant organism: No MDRO Diet/Activity/Treatments Diet: Diet as Tolerated Activity: As tolerated Other treatments: Bdsy-cje-qdgwasu Tylenol and/or ibuprofen may be used for additional pain relief. Liyb-bvt-wagfwhd stool softeners and/or MiraLax may be used as needed for constipation. Skin/Wound/Dressing Care Report to your healthcare provider any signs of infection, such as:: chills, fever, increased pain, unusual drainage and unusual redness Dressing: Dressing will be removed at the time your one-week postop visit Visit Report/Discharge Packet Instructions: DI for , DI for and Nipple Soreness, DI for Prescription Opioid Use Stand Alone Forms: Discharge: Care Discharge Data Primary Care Provider: Marlon Bradley
== END 2023-12-09 11:50 | disposition home or self-care (01) | DRG 787 ==
PROVIDERS: Admitting Provider Obstetrics & Gynecology; PCP Family Medicine; Referring Provider Obstetrics & Gynecology; Visit Provider Obstetrics & Gynecology
PROC: 10D00Z1 Extraction of Products of Conception, Low, Open Approach (ICD-10-PCS; CPT 59514; principal; 2023-12-08 01:00)
DX: O45.93 Premature separation of placenta, unspecified, third trimester (principal); D62 Acute posthemorrhagic anemia; O90.81 Anemia of the puerperium; Z3A.34 34 weeks gestation of pregnancy; Z37.0 Single live birth; O43.893 Other placental disorders, third trimester; D64.9 Anemia, unspecified
CPT/HCPCS: 36415; 59025; 59050; 59510; 59514; 76815; 76819; 85025; 85384; 85610; 85730; 86850; 86870; 86900; 86901; G0379; J0136; J0595; J0690; J0702; J1200; J1885; J2274; J2405; J2704

== ENCOUNTER 2024-02-24 06:12 | Day surgery (SDC) | payer OTHER, MEDICAID, SELFPAY ==
[2024-02-21 08:37] VITALS: BMI 26.1
[2024-02-24] VITALS (8 sets, daily range): BP systolic 106–114; BP diastolic 52–79; PULSE 54–87; RESP 14–21; TEMP 36.6–36.8; O2SAT 93–100; BMI 26.4
--- NOTE | 2024-02-24 | PATH_ITS ---
[facility] Accession Number: [id number] No. of containers..01 Tissue . 01 Material submitted: . fallopian tube - BILATERAL FALLOPIAN TUBES . 01 Diagnosis: BILATERAL FALLOPIAN TUBES, BILATERAL SALPINGECTOMY: Complete cross section of fimbriated bilateral fallopian tubes with benign paratubal cysts. MRV 02/29/2024 1311 Local . 01 Electronically signed: . Neha Curry MD, Pathologist NPI- [id number] . 01 Gross description: . Specimen is received in formalin, labeled with two patient identifiers and designated bilateral fallopian tubes, and consists of two free floating fimbriated fallopian tubes. The first measures 6.0 cm in length and averages 0.4 cm in diameter, and is arbitrarily inked blue. The specimen is sectioned to show a 0.3 cm stellate lumen. The second fimbriated fallopian tube measures 5.5 cm in length and averages 0.4 cm in diameter, and has a 0.4 x 0.3 x 0.3 cm unilocular serous filled paratubal cyst and a 0.3 cm fimbriated fallopian tube. [employer] sections are submitted in cassettes: . A1: Blue-inked fallopian tube with fimbriated end entirely submitted. A2: Fallopian tube 2 with paratubal cysts and fimbriated end entirely submitted. ([id number]) /MRV 02/28/2024 1426 Local . 01 Pathologist provided ICD-10: Z30.2 . 01 CPT . 313706 Specimen Comment: A courtesy copy of this report has been sent to [phone] Performed at: [address] [facility] - [place], [place], [place] [id number] MD Luis Menon MD Phone: [phone]
[2024-02-24] MEDS: LACTATED RINGERS 1,000 ML 42 ML IV ×2 (06:50→08:49)
[2024-02-24] MEDS: SCOPOLAMINE 1 PATCH TOP (06:50)
--- NOTE | 2024-02-24 07:28 | P.HPOB_ITS ---
History of Present Illness History of Present Illness Narrative: Guerita Penaloza is a 28 year old W s/p primary section for placental abruption in December 2023 admitted today for elective sterilization by bilateral laparoscopic salpingectomy. [facility] Medical History (Updated 02/24/24 @ 07:33 by Nathan Lam MD) Acne Anxiety Surgical History Anesthesia [place] [facility] teeth extracted Family History (Updated 05/17/23 @ 13:48 by Barb Vazquez, IRVIN) Mother Skin cancer Endometriosis Grandmother Breast cancer Grandmother Cancer Grandfather Cancer Grandfather Heart disease Sister Endometriosis Father Polio Social History marital status: number of children: 1 household members: spouse and children lives independently: Yes caregiver/support person: Yes housing: house pets and animals: Yes (outdoor cats) education level: vocational 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.) current occupational exposures/hazards: No sofiya/yazidism: Restorationist special sofiya needs: No travel history: over 6 months ago seatbelt use: always helmet use: Yes water heater temp set < 120 deg: Yes working smoke detector in home: Yes fire extinguisher in home: Yes carbon monox detector in home: Yes firearms in home: No (stored outside the home) do you feel safe at home: Yes Smoking Status: Never smoker second hand exposure: No alcohol intake: former substance use type: does not use during the past year weight has: remained stable well-balanced diet: daily or most days daily servings fruits/ve or more times/day caffeine: Yes (estimates 120-160mg) Type(s) of exercise: walking Meds Home Medications and Allergies Home Medications Medication Instructions Recorded Confirmed Type Lactobacillus acidophilus and 1 cap PO DAILY 05/17/23 02/24/24 History rhamnosus 15 billion cell capsule (Probiotic) folic acid 400 mcg tablet 0.4 mg PO DAILY 05/17/23 02/24/24 History melatonin 3 mg tablet 3 mg PO BEDTIME 05/17/23 02/24/24 History omega 6-sfo-ocw-fish oil 1,200 mg cap PO 05/17/23 02/07/24 History (144 mg-216 mg) capsule (Fish Oil) sertraline 50 mg tablet 100 mg (2 x 50 mg) PO DAILY #60 10/09/23 02/24/24 Rx tabs ibuprofen 600 mg tablet 600 mg PO Q6H #30 tabs 12/09/23 02/24/24 Rx oxycodone 5 mg tablet 5 mg PO Q4HR PRN Pain, Moderate 12/09/23 02/07/24 Rx (4-6) #20 tabs Allergies Allergy/AdvReac Type Severity Reaction Status Date / Time oysters Allergy Severe Difficulty Uncoded 02/24/24 06:57 Breathing Review of Systems Review of Systems Narrative: Problem-specific ROS positives included in HPI Exam Vital Signs (past 8 hours): - 02/24/24 06:53 Temperature 98.3 F Pulse Rate 70 Respiratory Rate 17 Blood Pressure 107/69 Pulse Oximetry 100 Oxygen Delivery Method Room Air Oxygen Delivery Method Room Air Const General: cooperative and comfortable Nutritional Appearance: average body habitus Orientation: alert and oriented x3 HENMT Head: normal to inspection, atraumatic and abrasion Ears: hearing grossly normal bilaterally Face and sinus: face symmetric Eyes General: appearance normal, both eyes and all related structures Conjunctivae: conjunctivae normal Sclera: sclerae normal EOM: EOM intact bilaterally Neck Neck: normal visual inspection Resp Effort & Inspection: normal respiratory effort and able to speak in complete s entences Auscultation: clear to auscultation bilaterally Cardio Rate: regular rate Rhythm: regular rhythm Heart Sounds: S1 normal, S2 normal and no murmurs GI Inspection: normal to inspection Palpation: soft and no hepatosplenomegaly General: other External Female Exam: normal external appearance Speculum Exam - Vagina: normal appearance of the vagina and normal vaginal discharge Speculum Exam - Cervix: normal appearance of the cervix and cervical os open Bimanual Exam- Vagina & Uterus: normal bimanual exam, uterine size normal, uterine mobility normal, uterine shape normal and non-tender Bimanual Exam- Adnexa, other: normal adnexae and no masses OB/External & Speculum: cervical os open Extrem General: no calf tenderness Psych Appearance: grossly normal Mental Status: mental status grossly normal Speech and Movement: speech and movement normal Mood: congruent mood Affect: normal affect Attitude: cooperative Thought Process: normal Thought Content: normal Judgment: judgment good Assessment & Plan Assessment and plan (1) Request for sterilization: Status: Acute Plan Patient counseled regarding alternatives, risks, benefits, and potential complications associated with laparoscopic bilateral salpingectomy. Patient understands that this is a procedure which will result in her permanently and irreversibly being unable to bear children without benefit of assisted reproduc tive technology. She also understands that there has a small (1-09/999) chance of failing to prevent and should such an event occur, the likelihood of ectopic gestation is high. With full understanding of the above, a written consent was executed, signed, and witnessed this date. Time-Based Coding :: [TOTAL MINUTES] spent with patient and on the chart (including review of chart, obtaining history, exam, reviewing outside data, placing orders, documenting exam and treatment plan, and counseling patient) on [DATE].
--- NOTE | 2024-02-24 07:35 | PM.PREOP ---
Pre-operative Note COVID-19 COVID-19 status: Not tested Interval Note History & Physical reviewed/Exam performed by Physician: Yes Changes to H&P: No
[2024-02-24] MEDS: ACETAMINOPHEN IV 1,000 MG/100 ML VIAL 400 MG IV (08:30)
--- NOTE | 2024-02-24 08:37 | SUR.OPER ---
Lithotomy on padded OR bed, head on pillow, arms secured on padded arm boards at <90 degrees abduction. Legs secured in padded yellow fins stirrups.
[2024-02-24] MEDS: BUPIVACAINE 0.5% W/ EPI (PF) 30 ML VIAL INJ (08:43)
--- NOTE | 2024-02-24 09:22 | PM.GYNOP.1 ---
Operative Date/Time/Diagnoses Date of procedure: 02/24/24 Time of procedure: 08:20 Pre-op diagnosis: Request for sterilization Post-op diagnosis: same Procedure & Clinicians Procedure: Procedures Operation Date: 02/24/24 07:45 Actual Procedure Side Surgeon p Laparoscopic Salpingectomy Bilateral Nathan Lam MD Indications: Guerita Penaloza is a 28 year old W s/p primary section for placental abruption in December 2023 admitted today for elective sterilization by bilateral laparoscopic salpingectomy. Surgeon: Nathan Lam Anesthesia Type: General Operative Notes Findings: Normal pelvis. The remainder of the abdomen is normal to laparoscopic visualization. Closure Type: primary Specimen(s): left tube and right tube Estimated blood loss (mL): 5 Blood products transfused: none Procedure in detail: With the patient under satisfactory general anesthesia in the modified dorsal lithotomy position, the perineum, vagina, and abdomen were prepped and draped for IUD removal and laparoscopic bilateral salpingectomy. A pre-surgical safety time-out was then taken in accordance with [facility] [place] protocols. The umbilicus was then infiltrated with 0.5% Marcaine with epinephrine and 1 cm vertical incision was made in the inferior aspect of the umbilicus. Veress needle was used to insufflate the abdomen with carbon dioxide and once appropriately insufflated, 5 mm bladeless trocar and sleeve were inserted through the incision. Proper placement of the sleeve was confirmed with laparoscopic visualization and insufflation of the abdomen continued. A 2nd and 3rd 5 mm laparoscopic port were placed in the right and left mid quadrants using a similar technique and using a 3 puncture technique, the abdomen and pelvis were visualized with the findings as noted above. The distal aspect of the left fallopian tube was then grasped with a grasping forceps and using a Power Seal device, fimbria ovarica was coagulated and divided the dissection using the Power Seal continuing across the mesosalpinx to the cornua where the base fallopian tube was coagulated and divided. The left fallopian tube was then removed through one of the ports and submitted pathologic specimen. Attention was then turned to the right adnexa with distal tube grasped with a grasping forcep. The Power Seal device was then used to coagulate fimbria ovarica and the dissection was carried across the mesosalpinx to the cornua where the fallopian tube on the right side was amputated at the cornua following coagulation proximal tube the Power Seal device. Pelvis was inspected and there were no abnormalities noted following bilateral salpingectomy. The pneumoperitoneum was then vented and the ports removed from the abdominal wall. Port incisions were then closed with 4-0 Monocryl using inverted interrupted stitches and skin glue was applied. Appropriate dressings were then applied, patient was awakened, and transferred to the PACU for a period of observation after having tolerated the procedure well. Complications: none Post-operative Condition: stable Disposition: PACU Plan for aftercare: Routine postoperative care with follow-up planned for 2 weeks postop
[2024-02-24] MEDS: ONDANSETRON 4 MG/2 ML INJ IV ×2 (09:31→09:46)
--- NOTE | 2024-02-24 09:52 | SUR.PHASEII ---
Patient reported nausea improving.
== END 2024-02-24 10:19 | disposition home or self-care (01) ==
PROVIDERS: PCP Family Medicine; Referring Provider Obstetrics & Gynecology; Visit Provider Obstetrics & Gynecology
PROC: 0UT74ZZ Resection of Bilateral Fallopian Tubes, Percutaneous Endoscopic Approach (ICD-10-PCS; CPT 58661; principal; 2024-02-24 07:45)
DX: Z30.2 Encounter for sterilization (principal); N83.8 Other noninflammatory disorders of ovary, fallopian tube and broad ligament
CPT/HCPCS: 58661; 81025; J0136; J1100; J1885; J2250; J2405; J2704; J3010

== ENCOUNTER → 2024-03-29 16:38 | Outpatient (CLI) | payer OTHER, MEDICAID, SELFPAY ==
[2024-03-30 13:36] LABS: Candida species Negative (Negative); Gardnerella vaginalis Negative (Negative); Trichomoas vaginalis Negative (Negative)
== END ==
PROVIDERS: PCP Family Medicine; Visit Provider Student in an Organized Health Care Education/Training Program
DX: N89.8 Other specified noninflammatory disorders of vagina (principal)
CPT/HCPCS: 87480; 87510; 87660

== ENCOUNTER → 2024-09-14 15:44 | Outpatient (CLI) | payer OTHER, SELFPAY ==
[2024-09-14 16:10] LABS: Hematocrit 40.8 % (36-46); Hemoglobin 13.9 g/dL (12.0-16.0); Mean Corpuscular HGB Conc 34.2 % (30-36); Mean Corpuscular Hemoglobin 30.1 PG (26-34); Platelet Count 377 X10^3/uL (150-400); Red Blood Cell Count 4.63 X10^6/uL (4.0-5.2); Red Cell Distribution Width 13.8 % (11.6-14.8); White Blood Cell Count 9.9 X10^3/uL (4.5-11.0)
[2024-09-14 16:38] LABS: HEMOLYSIS < 15 (0-50); Iron 84 ug/dL (37-170)
[2024-09-14 16:39] LABS: Alanine Aminotransferase 21 IU/L (<35); Albumin 5.3 g/dL (3.5-5.0); Albumin Globulin Ratio 1.7 (1.0-2.8); Alkaline Phosphatase 59 U/L (38-126); Aspartate Aminotransferase 26 IU/L (14-36); BUN Creatinine Ratio 23.1 (6-22); Bilirubin Total 0.3 mg/dL (0.2-1.3); Blood Urea Nitrogen 15 mg/dL (7-17); Calcium 9.8 mg/dL (8.4-10.2); Carbon Dioxide 24 mmol/L (22-32); Chloride 102 mmol/L (98-107); Estimated Glomerular Filt Rate > 60 mL/min (>60); Globulin 3.1 g/dL (1.7-4.1); Glucose 93 mg/dL (70-100); HEMOLYSIS < 15 (0-50); Potassium 3.6 mmol/L (3.4-5.1); Sodium 138 mmol/L (137-145); Total Protein 8.4 g/dL (6.3-8.2)
[2024-09-14 16:49] LABS: Percent Iron Saturation 29 % (15-50); Total Iron Binding Capacity 291 ug/dL (265-497); Transferrin 267 mg/dL (206-381)
[2024-09-14 16:54] LABS: Follicle Stimulating Hormone 2.23 mIU/mL; Luteinizing Hormone 4.28 mIU/mL
[2024-09-14 17:09] LABS: Estradiol, Total 74.9 pg/mL
[2024-09-14 17:10] LABS: TSH w/ Reflex to FT4 0.82 uIU/mL (0.47-4.68)
[2024-09-14 17:14] LABS: Ferritin 20 ng/mL (6-137)
== END ==
LOC: LAB 15:45
PROVIDERS: PCP Family Medicine; Referring Provider Family Medicine; Visit Provider Family Medicine
DX: N92.6 Irregular menstruation, unspecified (principal); L70.9 Acne, unspecified; R53.83 Other fatigue
CPT/HCPCS: 36415; 80053; 82670; 82728; 83001; 83002; 83036; 83540; 83550; 84146; 84402; 84403; 84443; 85027

== ENCOUNTER → 2024-11-05 13:29 | Outpatient (CLI) | payer OTHER, SELFPAY | PROVIDERS: PCP Family Medicine; Visit Provider Registered Nurse | DX: R05.1 Acute cough (principal) | CPT/HCPCS: 87070 ==

== ENCOUNTER → 2025-03-12 11:09 | Outpatient (CLI) | payer OTHER, SELFPAY | PROVIDERS: PCP Family Medicine; Visit Provider Family Medicine | DX: N39.0 Urinary tract infection, site not specified (principal) | CPT/HCPCS: 87086 ==